=== PATIENT | female | born 1980 | race Caucasian/White ===

== ENCOUNTER 2020-03-28 16:08 | Observation (INO) ==
[2020-03-28] MEDS ORDERED: 0.9 % Sodium Chloride 250 ML IVC ONE (17:43)
[2020-03-28] MEDS ORDERED: Naloxone 0.4 MG/ML INJ IVP PRN (18:30)
[2020-03-28] MEDS ORDERED: Ondansetron 4 MG/2 ML VIAL IVP PRN (18:30)
[2020-03-28] MEDS: Ringers Solution, Lactated 1,000 ML IVC SCH (21:20)
[2020-03-28] MEDS: MetroNIDAZOLE 500 MG/100 ML 500 MG/100 ML BAG IVPB SCH (21:21)
[2020-03-29 00:27] LABS: Basophils % 0.2 %; Immature Granulocytes % 0.4 % (0-4); Mean Corpuscular Volume 81.1 fL (83.0-100.0)
[2020-03-29 00:29] LABS: Eosinophils # 0.2 K/mcL (0.0-0.6); Eosinophils % 2.7 %; Hematocrit 38.7 % (35.3-44.9); Hemoglobin 12.4 g/dL (11.5-15.4); Immature Platelets 30.2 % (1.1-6.1); Lymphocytes # 2.7 K/mcL (0.6-4.6); Lymphocytes % 33.3 %; Monocytes # 0.6 K/mcL (0.0-1.3); Monocytes % 7.9 %; Neutrophils # 4.5 K/mcL (1.6-8.9); Platelet Count 40 K/mcL (140-400); Red Blood Count 4.77 M/mcL (3.82-4.97); Red Cell Distribution Width 13.3 % (11.5-14.5); Segmented Neutrophils % 55.5 %; White Blood Count 8.1 K/mcL (4.3-11.1)
[2020-03-29 00:46] LABS: BUN/Creatinine Ratio 10 (6-26); Blood Urea Nitrogen 9 mg/dL (6-20); Calcium 8.5 mg/dL (8.6-10.3); Carbon Dioxide 25 mEq/L (23-29); Chloride 109 mEq/L (98-107); Glucose 101 mg/dL (70-105); Osmolality,Calculated 291 (280-300); Potassium 3.5 mEq/L (3.5-5.1); Sodium 141 mEq/L (136-145); eGFR For African Americans > 60 (> 60); eGFR For Non-African Americans > 60 (> 60)
[2020-03-29] MEDS: MetroNIDAZOLE 500 MG/100 ML 500 MG/100 ML BAG IVPB SCH ×2 (03:51→13:56)
[2020-03-29] MEDS ORDERED: CefOXitin 1,000 MG VIAL ONE (07:04)
[2020-03-29] MEDS ORDERED: *HR* Rocuronium Bromide 50 MG/5 ML VIAL ONE ×2 (07:09→11:21)
[2020-03-29] MEDS ORDERED: *HR* FentaNYL (PF) 100 MCG/2 ML VIAL ONE ×2 (07:09→11:21)
[2020-03-29] MEDS ORDERED: *HR* Succinylcholine 200 MG/10 ML VIAL IVP ONE (07:09)
[2020-03-29] MEDS ORDERED: *HR* Propofol 200 MG/20 ML VIAL IVP ONE ×3 (07:09→11:21)
[2020-03-29] MEDS ORDERED: Lidocaine -MPF 2% 2 ML VIAL ONE ×2 (07:09→11:21)
[2020-03-29] MEDS ORDERED: *HR* Midazolam HCl 2 MG/2 ML VIAL ONE ×2 (07:09→11:21)
[2020-03-29] MEDS ORDERED: Ondansetron 4 MG/2 ML VIAL ONE ×2 (07:09→11:21)
[2020-03-29] MEDS ORDERED: Lidocaine -MPF 4% 5 ML AMPUL ONE (07:10)
[2020-03-29] MEDS ORDERED: 0.9 % Sodium Chloride 250 ML ONE (08:14)
[2020-03-29] MEDS: Ringers Solution, Lactated 1,000 ML IVC SCH (09:48)
[2020-03-29] MEDS ORDERED: *HR* OxyCODONE Immed Rel 5 MG TABLET PO PRN (11:47)
[2020-03-29] MEDS ORDERED: *HR* HYDROmorphone PF 0.5 MG/0.5 ML SYRINGE IVP PRN ×2 (11:47→13:43)
[2020-03-29] MEDS ORDERED: Ondansetron 4 MG/2 ML VIAL IVP PRN ×3 (11:47→13:43)
[2020-03-29] MEDS ORDERED: Ringers Solution, Lactated 1,000 ML IVC SCH ×3 (12:00→13:43)
[2020-03-29] MEDS ORDERED: *HR* HYDROMORPHONE 2 MG/ML VIAL ONE (12:42)
[2020-03-29] MEDS ORDERED: Albuterol 2.5 MG/3 ML NEBULIZER IH ONE (13:22)
[2020-03-29] MEDS ORDERED: Albuterol 2.5 MG/3 ML NEBULIZER ONE (13:23)
[2020-03-29] MEDS ORDERED: Naloxone 0.4 MG/ML INJ IVP PRN (13:43)
[2020-03-29 15:25] VITALS: BP 111/76
[2020-03-29] MEDS ORDERED: *HR* OxyCODONE/APAP 10/325 TABLET PO ONE (19:01)
[2020-03-29] MEDS ORDERED: MetroNIDAZOLE 500 MG/100 ML 500 MG/100 ML BAG IVPB SCH (20:00)
== END 2020-03-29 19:55 | disposition home or self-care (01) ==
LOC: EMEROOARM 16:08 → 3BNU 16:08 → SUATTDRO 19:53 → 3BNU 20:30
PROVIDERS: ADMIT Internal Medicine; ATTEND Family Medicine